=== PATIENT | female | born 1990 | race Caucasian/White ===

== ENCOUNTER 2019-01-03 23:47 | Emergency (ER) | payer OTHER ==
[2019-01-04 00:06] VITALS: BP 117/78; PULSE 80; TEMP 98.3; BMI 18.8
--- NOTE | 2019-01-04 00:10 | PDOC ---
History of Present Illness - General Chief Complaint: Lightheaded Stated Complaint: FEELING FAINT Time Seen by Provider: 01/03/19 23:57 History Source: Patient Exam Limitations: No Limitations - History of Present Illness Initial Comments: 01/04/19 00:06 This is a 28-year-old female with history of vasovagal syncope in the past. Patient said she got up this morning and felt nauseous and sick to her stomach. Patient went to the bathroom felt like she was going to throw up and the became very sweaty and nearly passed out. Patient said she then had several episodes of diarrhea throughout the day and has felt a little bit nauseous but has had no other near syncope episodes. Patient said she does feel somewhat lightheaded this evening so decided to come in for evaluation. Patient denies any abdominal pain, chest pain or any other complaints. Patient recently had blood work and an EKG. Patient said they were all normal. Patient does not have a history of anemia. Allergies: as per nursing notes Past Medical History: none Social history: Lives with family. Daily marijuana use Surgical history: None General: No fevers or chills, no weakness, no weight loss HEENT: No change in vision. No sore throat,. No ear pain CardioVascular: no chest discomfort. No shortness of breath Respiratory:No cough, or wheezing. Gastrointestinal: no nausea, vomiting, diarrhea or constipation, No rectal bleeding Genitourinary: No dysuria, hematuria, or frequency Musculoskeletal: No joint or muscle pain or swelling Neurologic: No headache, vertigo, + dizziness/lightheadedness but no loss of consciousness Psychiatric: nor depression Skin: No rashes or easy bruising Endocrine: no increased thirst or abnormal weight change Allergic: no skin or latex allergy All other systems reviewed and normal Exam: General: Well-nourished well-developed individual, no acute distress HEENT: Throat: Normal, tonsils normal, no erythema or exudate Neck: Supple, no meningeal signs, no lymphadenopathy Eyes::Pupils equal reactive and round, extraocular motion intact Chest: Nontender to palpation Cardiac: S1-S2 normal, regular rate and rhythm, no murmurs rubs or gallops Respiratory: Lungs clear to auscultation bilateral Abdomen: Soft, nondistended, normal bowel sounds, there is no tenderness on palpation diffusely Extremities: Warm, dry, no cyanosis, clubbing, or edema Skin: No rashes Neuro: Alert and oriented x3, CN II - XII intact, nonfocal exam with normal strength, normal sensation, normal reflexes, normal gait, Psych: Normal mood and affect Assessment and plan: This is 28-year-old female who comes in feeling lightheaded after several episodes of diarrhea today. Patient given a liter fluid and felt much better patient discharged home. Patient had normal vitals and has an appointment with her primary care doctor for Tuesday of next week. Past History - Past Medical History Allergies/Adverse Reactions: Allergies Allergy/AdvReac Type Severity Reaction Status Date / Time hazelnut Allergy Mild Hives Unverified 09/22/16 11:28 filbert nut Allergy Mild Hives Uncoded 09/22/16 11:28 Home Medications: Ambulatory Orders Norgestimate-Ethinyl Estradiol [Tri-Sprintec Tablet] #28 09/22/16 COPD: No GI Disorders: Yes (CHRONIC CONSTIPATION/IBS) - Suicide/Smoking/Psychosocial Hx Smoking History: Never smoked Have you smoked in the past 12 months: No Information on smoking cessation initiated: No Hx Alcohol Use: No Drug/Substance Use Hx: Yes (MARIJUANA DAILY) *Physical Exam - Vital Signs Last Vital Signs Temp Pulse Resp BP Pulse Ox 98.3 F 80 16 117/78 100 01/03/19 23:59 01/03/19 23:59 01/03/19 23:59 01/03/19 23:59 01/03/19 23:59 *DC/Admit/Observation/Transfer Diagnosis at time of Disposition: Light-headed feeling - Discharge Dispostion Disposition: HOME Condition at time of disposition: Stable Decision to Admit order: No - Referrals - Patient Instructions Additional Instructions: Make sure you stay well-hydrated and drink 6-8 10 ounce glasses of water a day. Return to the emergency department immediately with ANY new, persistent or worsening symptoms. Continue any medications as previously prescribed by your physician. You should follow up with your primary doctor as soon as possible regarding today's emergency department visit. . Please make sure your doctor reviews the results of your emergency evaluation. Thank you for coming to the Emergency Department today for your care. It was a pleasure to see you today. Please note that your evaluation is INCOMPLETE until you follow-up with your doctor. - Post Discharge Activity
== END 2019-01-04 01:01 | disposition home or self-care (01) ==
LOC: FER 23:47
DX: R42 Dizziness and giddiness (principal); K58.1 Irritable bowel syndrome with constipation
CPT/HCPCS: 99281-25